=== PATIENT | female | born 1990 | race Caucasian/White ===

== ENCOUNTER 2020-06-06 11:28 | Emergency (ER) | payer SELFPAY ==
[2020-06-06 11:33] VITALS: TEMP 97.5; BMI 49.2
--- NOTE | 2020-06-06 11:33 | PDOC ---
Rapid Medical Evaluation Time Seen by Provider: 06/06/20 11:30 Medical Evaluation: Allergies Allergy/AdvReac Type Severity Reaction Status Date / Time No Known Allergies Allergy Verified 06/06/20 11:30 06/06/20 11:30 30 year old female with pmhx of asthma, MS, HTN, Pre DM, gastric sleeve seasonal allergies complaining of SOB and asthma attack. Pt states that she took her rescue inhaler at home with only mild relief. Also complaining of sinus pressure. Has IUD. COVID testing on 05/22 negative after traveling to . Pt is also complaining of generalized back pain PE: RRR Lungs CTA VSS A/P: Chest XR Meds differed to provider Pt to precede to ED for further eval and treatment
[2020-06-06] MEDS ORDERED: ALBUTEROL SO4 2.5/IPRATROPIUM 0.5 INH SOL 3 ML VIAL.NEB. NEB ONE (11:51)
[2020-06-06] MEDS ORDERED: ALBUTEROL SO4 2.5/IPRATROPIUM 0.5 INH SOL 3 ML VIAL.NEB. NEB SCH (12:00)
--- NOTE | 2020-06-06 12:07 | PDOC ---
History of Present Illness - General Chief Complaint: Asthma Stated Complaint: ASTHMA Time Seen by Provider: 06/06/20 11:30 History Source: Patient Exam Limitations: No Limitations - History of Present Illness Initial Comments: 06/06/20 12:07 30 year old female with pmhx of asthma, obesity, gastric sleeve, chronic back pain presenting w 1d SOB, nasal congestion. Not relieved w 2 puffs of albuterol. Denies fever, cough, chest pain, n/v Past History - Medical History Allergies/Adverse Reactions: Allergies Allergy/AdvReac Type Severity Reaction Status Date / Time No Known Allergies Allergy Verified 06/06/20 11:30 Home Medications: Ambulatory Orders Prednisone [Prednisone 50 MG TABLETS] 50 mg PO DAILY 5 Days #5 tablet 06/06/20 Asthma: Yes COPD: No Diabetes: Yes HTN: Yes - Surgical History Abdominal Surgery: Yes (GASTRIC SLEEVE) Cholecystectomy: Yes - Reproductive History Is Patient Now?: No - Immunization History Immunization Up to Date: Yes - Psycho-Social/Smoking History Smoking History: Never smoked - Substance Abuse Hx (Audit-C & DAST Scrn) How often the patient has a drink containing alcohol: Never Score: In Men: 4 or > Positive; In Women: 3 or > Positive: 0 Screen Result (Pos requires Nsg. Audit-10AR): Negative In the last yr the pt used illegal drug/Rx for NonMed reason: Yes Score: Yes response is considered Positive: 1 Screen Result (Positive result requires Nsg. DAST-10): Positive Review of Systems - Review of Systems Constitutional: No: Chills, Fever HEENTM: Yes: Nose Congestion. No: Eye Pain Respiratory: Yes: Shortness of Breath. No: Cough Cardiac (ROS): No: Chest Pain, Palpitations ABD/GI: No: Nausea, Vomiting : No: Burning, Dysuria Musculoskeletal: No: Back Pain, Joint Pain Integumentary: No: Bruising, Flushing Neurological: No: Headache, Seizure Psychiatric: No: Anxiety, Depression Endocrine: No: Intolerance to Cold, Intolerance to Heat Hematologic/Lymphatic: No: Anemia, Blood Clots *Physical Exam - Vital Signs Last Vital Signs Temp Pulse Resp BP Pulse Ox 97.5 F L 90 20 165/94 99 06/06/20 11:30 06/06/20 11:30 06/06/20 11:30 06/06/20 11:30 06/06/20 11:58 - Physical Exam General Appearance: Yes: Nourished, Appropriately Dressed, Mild Distress, Obese HEENT: positive: EOMI, TEE, Normal Voice, Hearing Grossly Normal. negative: Scleral Icterus (R), Scleral Icterus (L) Respiratory/Chest: positive: Wheezing (maria c). negative: Chest Tender, Respiratory Distress, Accessory Muscle Use, Crackles, Rales, Rhonchi, Stridor Cardiovascular: positive: Regular Rhythm, Regular Rate, S1, S2. negative: Murmur Gastrointestinal/Abdominal: positive: Normal Bowel Sounds, Flat, Soft. negative: Tender, Organomegaly Integumentary: positive: Normal Color, Warm Neurologic: positive: Fully Oriented, Alert, Normal Response Medical Decision Making - Medical Decision Making 06/06/20 14:10 Has asthma exacerbation (wheezing) and URI. Low concern for PNA Given 1xduoneb, decadron, sudafed, albuterol w breathing improvement DC home w prednisone, PCP f/u Discharge - Discharge Information Problems reviewed: Yes Clinical Impression/Diagnosis: Viral URI Asthma exacerbation Qualifiers: Asthma severity: moderate Asthma persistence: persistent Qualified Code(s): J45.41 - Moderate persistent asthma with (acute) exacerbation Condition: Improved Disposition: HOME - Additional Discharge Information Prescriptions: Prednisone [Prednisone 50 MG TABLETS] 50 mg PO DAILY 5 Days #5 tablet - Follow up/Referral - Patient Discharge Instructions Patient Printed Discharge Instructions: DI for Asthma -- Adult Additional Instructions: Take the prescribed Prednisone as directed Follow up with your primary care doctor - Post Discharge Activity
[2020-06-06] MEDS ORDERED: ACETAMINOPHEN 500 MG TABLET (FP) PO ONE (12:17)
[2020-06-06] MEDS ORDERED: DEXAMETHASONE 4 MG TABLET (FP) PO ONE (12:18)
[2020-06-06] MEDS ORDERED: PSEUDOEPHEDRINE HCL 60 MG TABLET PO ONE (12:19)
[2020-06-06] MEDS ORDERED: ACETAMINOPHEN 325 MG TABLET (FP) ONE (12:48)
[2020-06-06] MEDS ORDERED: DEXAMETHASONE SOD PHOSPHATE 10 MG/1 ML VIAL ONE (12:48)
[2020-06-06] MEDS ORDERED: ALBUTEROL SO4 HFA INHALER IH ONE ×2 (12:48→13:59)
[2020-06-06] MEDS ORDERED: PSEUDOEPHEDRINE HCL 60 MG TABLET ONE (12:49)
--- NOTE | 2020-06-06 13:56 | PDOC ---
Attending Attestation - Resident Resident Name: Elian Buitrago - HPI HPI: 06/06/20 13:49 Pt presents to the ED complaining of wheezing and shortness of breath consistent with prior asthma exacerbation. History of asthma without intubations or hospital admissions. Denies fever, cough or other associated symptoms. - Physicial Exam PE: 06/06/20 13:56 Agree with resident exam. Patient is alert and in no acute distress. Lungs are clear. slightly tachypneic, but speaking in complete sentences without accessory muscle use. - Medical Decision Making 06/06/20 13:59 Pt presents to the ED complaining of wheezing and shortness of breath consistent with prior asthma exacerbations. Improved in the ED after nebs and steroids. Will discharge home with prednisone and PCP follow up. Discharge - Discharge Information Problems reviewed: Yes Clinical Impression/Diagnosis: Viral URI Asthma exacerbation Qualifiers: Asthma severity: moderate Asthma persistence: persistent Qualified Code(s): J45.41 - Moderate persistent asthma with (acute) exacerbation Condition: Improved Disposition: HOME - Additional Discharge Information Prescriptions: Prednisone [Prednisone 50 MG TABLETS] 50 mg PO DAILY 5 Days #5 tablet - Follow up/Referral - Patient Discharge Instructions Patient Printed Discharge Instructions: DI for Asthma -- Adult Additional Instructions: Take the prescribed Prednisone as directed Follow up with your primary care doctor - Post Discharge Activity
[2020-06-06 14:13] VITALS: BP 134/84; PULSE 75
== END 2020-06-06 14:12 | disposition home or self-care (01) ==
LOC: JER 11:28
PROC: 3E0F7GC Introduction of Other Therapeutic Substance into Respiratory Tract, Via Natural or Artificial Opening (ICD-10-PCS; principal; 2020-06-06)
DX: J45.41 Moderate persistent asthma with (acute) exacerbation (principal); J06.9 Acute upper respiratory infection, unspecified
CPT/HCPCS: 99284-25